=== PATIENT | female | born 1955 | race Caucasian/White ===

== ENCOUNTER 2017-12-20 01:18 | Inpatient (IN) ==
--- NOTE | 2017-12-20 01:52 | ED ---
HPI General Chief complaint: Psychiatric Symptoms Stated complaint: psych eval/fbpd Time Seen by Provider: 12/20/17 01:39 History of Present Illness HPI narrative: 62-year-old female presents under a Felix act initially by the Police Department. The patient reports that tonight she was feeling depressed because it is the anniversary of her 's affair. She reports that she wrote a letter to her children saying goodbye because she is going to take the "coward's way out." She reports that she took 7 tablets of 0.5 mg Xanax at approximately 10 PM tonight. She also took her routine dose of mirtazapine. Her called 911. Symptoms are moderate, aggravated by life stressors with no relieving factors. She denies any drug or alcohol use, auditory or visual hallucinations. She has no medical complaints at this time. Related Data Home Medications Medication Instructions Recorded Confirmed Prevacid 20 mg PO DAILY 12/20/17 12/20/17 alprazolam [Xanax] 0.5 mg PO TID 12/20/17 12/20/17 apwrqrpsyc-aznxeqcggbeiy-inbx 1 cap PO Q4H PRN 12/20/17 12/20/17 [Fioricet] escitalopram oxalate [Lexapro] 20 mg PO DAILY 12/20/17 12/20/17 mirtazapine [Remeron] 30 mg PO HS 12/20/17 12/20/17 sumatriptan succinate [Imitrex] 100 mg PO Q2-4H 12/20/17 12/20/17 Allergies Allergy/AdvReac Type Severity Reaction Status Date / Time doxycycline Allergy Vomiting Verified 12/20/17 01:37 aspirin AdvReac Palpitation Verified 12/20/17 01:37 s Review of Systems ROS: all other systems reviewed are negative PMFSH Medical History Medical History Anxiety (Acute) Depression (Acute) Migraine (Acute) Neutropenia (Acute) Social History Social History Recent Travel in [facility] within the Last 8 Weeks: No Recent Out of Country Travel within the Last 8 Weeks: No Exam Narrative Exam Narrative: GENERAL: Well-developed well-nourished female in no acute distress, awake and alert. SKIN: Warm and dry. HEAD: Atraumatic. Normocephalic. EYES: Pupils equal and round. No scleral icterus. No injection or drainage. ENT: No nasal bleeding or discharge. Mucous membranes pink and moist. NECK: Trachea midline. No JVD. CARDIOVASCULAR: Regular rate and rhythm. No murmur appreciated. RESPIRATORY: No accessory muscle use. Clear to auscultation. Breath sounds equal bilaterally. GASTROINTESTINAL: Abdomen soft, non-tender, nondistended. Hepatic and splenic margins not palpable. MUSCULOSKELETAL: No obvious deformities. No clubbing. No cyanosis. No edema. NEUROLOGICAL: Awake and alert. No obvious cranial nerve deficits. Motor grossly within normal limits. Normal speech. PSYCHIATRIC: Depressed mood; insight and judgment normal. Course Initial Documented Vital Signs Temperature 97.6 F 12/20/17 01:27 Pulse Rate 75 12/20/17 01:27 Respiratory Rate 18 12/20/17 01:27 Blood Pressure 132/81 12/20/17 01:27 Pulse Oximetry 100 12/20/17 01:27 Last Documented Vital Signs Temperature 97.6 F 12/20/17 01:27 Pulse Rate 75 12/20/17 01:27 Respiratory Rate 18 12/20/17 01:27 Blood Pressure 132/81 12/20/17 01:27 Pulse Oximetry 100 12/20/17 01:27 Medical Decision Making MDM Narrative Medical decision making narrative: Mental health screening discussed with the patient. Psychiatric screen ordered. Lab work is been reviewed. Drug screen was positive for barbiturates and benzodiazepines. She was observed in the ER. She is medically cleared for psychiatric disposition. Medical Screen Exam Complete: Yes Emergency Medical Condition: Yes Differential Diagnosis Differential Diagnosis: Major depressive disorder, depressive disorder not otherwise specified, adjustment reaction, acute psychosis, substance-induced mood disorder Lab Data Result diagrams: 12/20/17 01:30 12/20/17 01:30 Lab Results 12/20/17 12/20/17 12/20/17 Range/Units 01:30 01:30 01:30 WBC 2.7 L (4.0-11.0) th/mm3 RBC 4.69 (4.00-5.30) mil/mm3 Hgb 13.8 (11.6-15.3) gm/dL Hct 40.8 (35.0-46.0) % MCV 87.2 (80.0-100.0) fL MCH 29.4 (27.0-34.0) pg MCHC 33.8 (32.0-36.0) % RDW 12.7 (11.6-17.2) % Plt Count 197 (150-450) th/mm3 MPV 8.2 (7.0-11.0) fL Prelim Diff (Auto) Manual diff required Differential Comment . Sodium 142 (136-145) meq/L Potassium 4.2 (3.5-5.1) meq/L Chloride 106 (98-107) meq/L Carbon Dioxide 27.3 (21.0-32.0) meq/L Anion Gap 9 (5-15) meq/L BUN 15 (7-18) mg/dL Creatinine 0.72 (0.50-1.00) mg/dL Estimated GFR 82 L (>89) mL/min Random Glucose 83 (74-106) mg/dL Calcium 8.7 (8.5-10.1) mg/dL Total Bilirubin 0.3 (0.2-1.0) mg/dL AST 16 (15-37) U/L ALT 23 (10-53) U/L Alkaline Phosphatase 53 (45-117) U/L Total Protein 7.4 (6.4-8.2) g/dL Albumin 3.9 (3.4-5.0) g/dL TSH 2.150 (0.358-3.740) uIU/mL Salicylates Less than 1.7 L (2.8-20.0) mg/dL Urine Opiates Screen (Neg) Acetaminophen Less than 2.0 L (10.0-30.0) mcg/mL Ur Barbiturates Screen (Neg) Ur Amphetamines Screen (Neg) U Benzodiazepines Scrn (Neg) Urine Cocaine Screen (Neg) U Cannabinoids Screen (Neg) Serum Alcohol Less than 3 (0-5) mg/dL 12/20/17 Range/Units 01:30 WBC (4.0-11.0) th/mm3 RBC (4.00-5.30) mil/mm3 Hgb (11.6-15.3) gm/dL Hct (35.0-46.0) % MCV (80.0-100.0) fL MCH (27.0-34.0) pg MCHC (32.0-36.0) % RDW (11.6-17.2) % Plt Count (150-450) th/mm3 MPV (7.0-11.0) fL Prelim Diff (Auto) Differential Comment Sodium (136-145) meq/L Potassium (3.5-5.1) meq/L Chloride (98-107) meq/L Carbon Dioxide (21.0-32.0) meq/L Anion Gap (5-15) meq/L BUN (7-18) mg/dL Creatinine (0.50-1.00) mg/dL Estimated GFR (>89) mL/min Random Glucose (74-106) mg/dL Calcium (8.5-10.1) mg/dL Total Bilirubin (0.2-1.0) mg/dL AST (15-37) U/L ALT (10-53) U/L Alkaline Phosphatase (45-117) U/L Total Protein (6.4-8.2) g/dL Albumin (3.4-5.0) g/dL TSH (0.358-3.740) uIU/mL Salicylates (2.8-20.0) mg/dL Urine Opiates Screen Neg (Neg) Acetaminophen (10.0-30.0) mcg/mL Ur Barbiturates Screen Pos H (Neg) Ur Amphetamines Screen Neg (Neg) U Benzodiazepines Scrn Pos H (Neg) Urine Cocaine Screen Neg (Neg) U Cannabinoids Screen Neg (Neg) Serum Alcohol (0-5) mg/dL Discharge Plan Discharge Disposition Patient Disposition: 30 Still Patient Discharge Condition Condition: Stable Discharge Details Diagnosis: Encounter for medical clearance for patient hold Physicians Team ED Provider: Tonio Zhang ED Midlevel Provider: Jerrod Conley Rxs /Orders / Referrals /Forms Prescriptions: No Action sumatriptan succinate [Imitrex] 100 mg Tablet 100 mg PO Q2-4H RF: 0 alprazolam [Xanax] 0.5 mg Tablet 0.5 mg PO TID RF: 0 mirtazapine [Remeron] 30 mg Tablet 30 mg PO HS RF: 0 escitalopram oxalate [Lexapro] 20 mg Tablet 20 mg PO DAILY RF: 0 Prevacid 20 mg PO DAILY RF: 0 [id number]-gfwoyhjzsaxzo-sbyk [Fioricet] 50-300-40 mg Capsule 1 cap PO Q4H PRN (Reason: Migraine Headache) RF: 0 Status ED Status: Medically Cleared
[2017-12-20 01:58] LABS: Hematocrit 40.8 % (35.0-46.0); Hemoglobin 13.8 gm/dL (11.6-15.3); Mean Corpuscular HGB Conc 33.8 % (32.0-36.0); Mean Corpuscular Hemoglobin 29.4 pg (27.0-34.0); Mean Corpuscular Volume 87.2 fL (80.0-100.0); Mean Platelet Volume 8.2 fL (7.0-11.0); Platelet Count 197 th/mm3 (150-450); Red Blood Count 4.69 mil/mm3 (4.00-5.30); Red Cell Distribution Width 12.7 % (11.6-17.2); White Blood Count 2.7 th/mm3 (4.0-11.0)
[2017-12-20 02:25] LABS: Barbiturate Screen,Urine Pos (Neg); Cannabinoid Screen,Urine Neg (Neg); Cocaine Screen,Urine Neg (Neg)
[2017-12-20 02:31] LABS: Amphetamine Screen,Urine Neg (Neg)
[2017-12-20 02:35] LABS: Opiate Screen,Urine Neg (Neg)
[2017-12-20 03:14] LABS: Alanine Aminotransferase 23 U/L (10-53); Albumin 3.9 g/dL (3.4-5.0); Anion Gap 9 meq/L (5-15); Aspartate Aminotransferase 16 U/L (15-37); Blood Urea Nitrogen 15 mg/dL (7-18); Calcium 8.7 mg/dL (8.5-10.1); Carbon Dioxide 27.3 meq/L (21.0-32.0); Chloride 106 meq/L (98-107); Glomerular Filtration Rate 82 mL/min (>89); Glucose,Random 83 mg/dL (74-106); Potassium 4.2 meq/L (3.5-5.1); Sodium 142 meq/L (136-145)
[2017-12-20 03:24] LABS: Alkaline Phosphatase 53 U/L (45-117); Total Protein 7.4 g/dL (6.4-8.2)
[2017-12-20 03:43] LABS: Eosinophils 6 % (0-4); Lymphocytes 68 % (9-44); Monocytes 19 % (0-8)
[2017-12-20 03:49] LABS: Platelet Estimate Normal (Normal); Platelet Morphology Normal (Normal); RBC Morphology Normal (Normal)
--- NOTE | 2017-12-20 10:21 | ED ---
HPI - Psych - General Source: patient, family Limitations: no limitations - History of Present Illness complaint: suicidal ideation, feels depressed Onset (ago): hour(s) Duration: constant History of same: Yes Relieving factors: none Exacerbating factors: other Context: significant life stressor Associated psychiatric symptoms: depression Associated symptoms: denies other symptoms Treatments prior to arrival: other - General Chief Complaint: Psychiatric Symptoms Stated Complaint: psych eval/fbpd Time Seen by Provider: 12/20/17 09:45 - History of Present Illness HPI Narrative: History of Present Illness HPI narrative: 62-year-old, female, 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 The police were contacted by the patient's who reported that she had told him that she planned to kill herself and that she rode a letter to their kids saying [email or web address]. She reported to the registration officer that she suffers from the per depression, that she is suicidal and that she did write a letter. Yesterday was the anniversary of her finding out that her had been having extramarital affair. She also stated she planned to take pills to end her life as she has no will to live. Upon arrival to the ED she reported " she wrote a letter to her children saying alvaroe because she is going to take the cowards way out.She reports that she took 7 tablets of 0.5 mg Xanax at approximately 10 PM tonight. She also took her routine dose of mirtazapine." EMR is reviewed. No previous contact with [facility]. Current toxicology positive for barbiturates and benzos which are prescribed. The patient is seen. She is alert and oriented, engaging and cooperative. Affect is depressed and tearful. Mood is depressed. She admits that she is experiencing marital stressors related to an ongoing affair her has been having. She admits that she wrote the letter as well as admits to having taken some of the extra medication. She tells me she feels remorseful for what she did. She is wanting to be discharged because she has a business trip planned for . She tells me that her daughter will spend the night with her. The patient denies current suicidal or homicidal ideation. I placed a call to her daughter Frank with the patient's verbal consent at [phone]. The daughter does tell me that the patient can spend the night with her overnight yet she has some concerns for her safety. She tells me that she has talked about suicide before and that the daughter has called the police on prior occasions after her statements. She also tells me that the patient spent an hour and a half with her therapist, Ms. Amaya Jacobs earlier in the day and did not disclose her suicidality. I placed a call to Dr. Scott leon office at [phone] and message left to obtain further information. (Minnie Dey) - Related Data Home Medications Medication Instructions Recorded Confirmed Prevacid 20 mg PO DAILY 12/20/17 12/20/17 alprazolam [Xanax] 0.5 mg PO TID 12/20/17 12/20/17 [id number]-wlzbaqtrnzcnm-nfct 1 cap PO Q4H PRN 12/20/17 12/20/17 [Fioricet] escitalopram oxalate [Lexapro] 20 mg PO DAILY 12/20/17 12/20/17 mirtazapine [Remeron] 30 mg PO HS 12/20/17 12/20/17 sumatriptan succinate [Imitrex] 100 mg PO Q2-4H 12/20/17 12/20/17 Allergies Allergy/AdvReac Type Severity Reaction Status Date / Time doxycycline Allergy Vomiting Verified 12/20/17 01:37 aspirin AdvReac Palpitation Verified 12/20/17 01:37 s PMFSH - History History Provided By: Patient - Medical History Medical History: Medical History (Last Updated 12/20/17 @ 01:30 by Candie Enamorado RN) Anxiety Depression Migraine Neutropenia - Social History I have reviewed the patient's Social History: Yes - Tobacco History Second Hand Smoke Exposure: Yes Tobacco Use In Past 30 Days: Yes Smoking Status: Current every day smoker Tobacco Type: Cigarettes - Alcohol History How Often Do You Have a Drink Containing Alcohol: Monthly or less - Travel History Recent Travel in the [place] Within the Last 8 Weeks: No Recent Travel Out of the Country Within the Last 8 Weeks: No - Immunization History Tetanus Immunization: Unsure Psychiatric History - Psychiatric History Psychiatric Treatment History: History of Community Mental Health Treatment History of Inpatient Treatment: No Firearms in Home: No - Psychiatric History Reports no previous psychiatric inpatient hospitalizations. No previous suicide attempts. Has been seen in outpatient psychiatrist for approximately 1 year. Does see a therapist as well since March. (Minnie Dey) - Family Psychiatric History Mother with reported multiple suicide attempts and history of major depression. (Minnie Dey) Mental Status Examination Consciousness: Alert Orientation: x4 Motor Activity: Normal gait Speech: Unremarkable Language: Adequate Fund of Knowledge: Adequate Attention and Concentration: Adequate Memory: Unremarkable Mood: Sad Affect: Sad, Other Thought Process & Associations: Intact, Logical (Tearful), Goal directed Thought Content: Appropriate Hallucination Type: None Delusion Type: None Suicidal Ideation: Yes Suicidal Plan: No Suicidal Intention: No Homicidal Ideation: No Homicidal Plan: No Homicidal Intention: No Insight: Fair Judgment: Impulsive Initial Documented Vital Signs Temperature 97.6 F 12/20/17 01:27 Pulse Rate 75 12/20/17 01:27 Respiratory Rate 18 12/20/17 01:27 Blood Pressure 132/81 12/20/17 01:27 Pulse Oximetry 100 12/20/17 01:27 Last Documented Vital Signs Temperature 97.8 F 12/20/17 11:35 Pulse Rate 78 12/20/17 11:35 Respiratory Rate 18 12/20/17 11:35 Blood Pressure 147/81 H 12/20/17 11:35 Pulse Oximetry 99 12/20/17 11:35 MDM - Psych - Diagnosis (1) Major depressive disorder, recurrent Status: Acute - Lab Data Result diagrams: 12/20/17 01:30 12/20/17 01:30 - [facility] Narrative Medical decision making narrative: At the time of this evaluation the patient presents with symptoms of depression , recent suicide attempt by overdose in contacts of the anniversary of her finding out her was having an extramarital affair. Although the patient denies current suicidal ideation the patient's daughter had some concerns regarding the patient's safety if she were to be discharge. She was mostly concerned that she had spent an hour and a half with her therapist earlier in the day and had not discussed her plans. At this time the patient will be admitted to our inpatient psychiatric unit for further evaluation, for safety, stabilization. (Minnie Dey) - Lab Data Lab Results 12/20/17 12/20/17 12/20/17 Range/Units 01:30 01:30 01:30 WBC 2.7 L (4.0-11.0) th/mm3 RBC 4.69 (4.00-5.30) mil/mm3 Hgb 13.8 (11.6-15.3) gm/dL Hct 40.8 (35.0-46.0) % MCV 87.2 (80.0-100.0) fL MCH 29.4 (27.0-34.0) pg MCHC 33.8 (32.0-36.0) % RDW 12.7 (11.6-17.2) % Plt Count 197 (150-450) th/mm3 MPV 8.2 (7.0-11.0) fL Prelim Diff (Auto) Manual diff required WBC Differential Manual diff final Seg Neuts % (Manual) 7 L (16-70) % Lymphocytes % (Manual) 68 H (9-44) % Monocytes % (Manual) 19 H (0-8) % Eosinophils % (Manual) 6 H (0-4) % Abs Neuts (Manual) 0.2 L* (1.8-7.7) th/mm3 Differential Comment . Platelet Estimate Normal (Normal) Platelet Morphology Normal (Normal) RBC Morphology Normal (Normal) Sodium 142 (136-145) meq/L Potassium 4.2 (3.5-5.1) meq/L Chloride 106 (98-107) meq/L Carbon Dioxide 27.3 (21.0-32.0) meq/L Anion Gap 9 (5-15) meq/L BUN 15 (7-18) mg/dL Creatinine 0.72 (0.50-1.00) mg/dL Estimated GFR 82 L (>89) mL/min Random Glucose 83 (74-106) mg/dL Calcium 8.7 (8.5-10.1) mg/dL Total Bilirubin 0.3 (0.2-1.0) mg/dL AST 16 (15-37) U/L ALT 23 (10-53) U/L Alkaline Phosphatase 53 (45-117) U/L Total Protein 7.4 (6.4-8.2) g/dL Albumin 3.9 (3.4-5.0) g/dL TSH 2.150 (0.358-3.740) uIU/mL Salicylates Less than 1.7 L (2.8-20.0) mg/dL Urine Opiates Screen (Neg) Acetaminophen Less than 2.0 L (10.0-30.0) mcg/mL Ur Barbiturates Screen (Neg) Ur Amphetamines Screen (Neg) U Benzodiazepines Scrn (Neg) Urine Cocaine Screen (Neg) U Cannabinoids Screen (Neg) Serum Alcohol Less than 3 (0-5) mg/dL 12/20/17 Range/Units 01:30 WBC (4.0-11.0) th/mm3 RBC (4.00-5.30) mil/mm3 Hgb (11.6-15.3) gm/dL Hct (35.0-46.0) % MCV (80.0-100.0) fL MCH (27.0-34.0) pg MCHC (32.0-36.0) % RDW (11.6-17.2) % Plt Count (150-450) th/mm3 MPV (7.0-11.0) fL Prelim Diff (Auto) WBC Differential Seg Neuts % (Manual) (16-70) % Lymphocytes % (Manual) (9-44) % Monocytes % (Manual) (0-8) % Eosinophils % (Manual) (0-4) % Abs Neuts (Manual) (1.8-7.7) th/mm3 Differential Comment Platelet Estimate (Normal) Platelet Morphology (Normal) RBC Morphology (Normal) Sodium (136-145) meq/L Potassium (3.5-5.1) meq/L Chloride (98-107) meq/L Carbon Dioxide (21.0-32.0) meq/L Anion Gap (5-15) meq/L BUN (7-18) mg/dL Creatinine (0.50-1.00) mg/dL Estimated GFR (>89) mL/min Random Glucose (74-106) mg/dL Calcium (8.5-10.1) mg/dL Total Bilirubin (0.2-1.0) mg/dL AST (15-37) U/L ALT (10-53) U/L Alkaline Phosphatase (45-117) U/L Total Protein (6.4-8.2) g/dL Albumin (3.4-5.0) g/dL TSH (0.358-3.740) uIU/mL Salicylates (2.8-20.0) mg/dL Urine Opiates Screen Neg (Neg) Acetaminophen (10.0-30.0) mcg/mL Ur Barbiturates Screen Pos H (Neg) Ur Amphetamines Screen Neg (Neg) U Benzodiazepines Scrn Pos H (Neg) Urine Cocaine Screen Neg (Neg) U Cannabinoids Screen Neg (Neg) Serum Alcohol (0-5) mg/dL
[2017-12-20] MEDS ORDERED: Aluminum/Magnesium/Simethacone Susp 30 ML UDC PO PRN (11:35)
[2017-12-20] MEDS ORDERED: Bisacodyl 10 MG Supp RECTAL PRN (11:35)
[2017-12-21 05:49] VITALS: RESP 16
[2017-12-21 08:10] LABS: Anion Gap 9 meq/L (5-15); Blood Urea Nitrogen 12 mg/dL (7-18); Calcium 9.2 mg/dL (8.5-10.1); Carbon Dioxide 27.4 meq/L (21.0-32.0); Chloride 105 meq/L (98-107); Glomerular Filtration Rate Greater Than 89 mL/min (>89); Glucose,Random 78 mg/dL (74-106); Potassium 3.9 meq/L (3.5-5.1); Sodium 141 meq/L (136-145)
[2017-12-21 08:11] LABS: Cholesterol 226 mg/dL (120-200); Triglycerides 126 mg/dL (42-150)
[2017-12-21 08:36] LABS: Chol/HDL Ratio 2.55 Ratio; HDL Cholesterol 88.3 mg/dL (40.0-60.0); LDL Cholesterol,Calculated 113 mg/dL (0-99); Vitamin B12 365 pg/mL (193-986)
[2017-12-21] MEDS: LANSOPRAZOLE 20 MG PO SCH (09:13)
[2017-12-21] MEDS: ALPRAZolam 0.5 MG Tablet PO SCH ×2 (09:13→13:52)
--- NOTE | 2017-12-21 13:37 | ECG ---
Date Performed: 12/21/2017 Time Performed: 10:53:25 PTAGE: 62 years EKG: Sinus rhythm NORMAL ECG Since the previous tracing, no significant change noted NO PREVIOUS TRACING DOCTOR: Henry Vargas M.D. Interpretating Date/Time 12/21/2017 13:37:15
[2017-12-21] MEDS: LORazepam 0.5 MG Tablet PO PRN (16:00)
--- NOTE | 2017-12-21 16:01 | P.CON ---
History of Present Illness Service: [facility] Consult date: 12/21/17 Requesting Physician: Garrett Ohara Reason for Consult: Idiopathic neutropenia Primary Care Provider: UNKNOWN Chief Complaint: depression History of Present Illness: Mrs. Up is a pleasant 62-year-old female with history of depression, anxiety , idiopathic neutropenia. Patient was brought in under [id number] act on 12/20/2017 for suicide attempt. Patient reports she has been depressed as her has been having an affair for the last 3 years and she found out only a year ago. They have been for 35 years. In addition, her mother a year ago. Apparently she wrote a letter to her children saying goodbye and took 7 tablets of 0.5 mg Xanax. She also took her routine mirtazapine. Her called 911 and she was brought in. She denies any prior suicide attempt , has been seeing a psychiatrist for the last year because of depression. She has been taking Lexapro and Remeron as well as alprazolam. During evaluation in the emergency room, laboratory workup was completed. CBC was remarkable for leukopenia, WBC of 2.7. Patient endorses history of idiopathic neutropenia that was found incidentally when she had her hysterectomy a few years ago. She follows up with nutrition partner Dr. Forbes as OP and has had previous bone biopsy with no significant findings. Has not had any treatment for condition. Indicates she does not typically get any infections,and usually receives prophylactic antibiotics before any surgical procedures. She is up-to-date with her vaccines including influenza. Denies any recent fevers, no chills, no shortness of breath, no cough, no sputum. No urinary symptoms. No abdominal pain, no nausea, no vomiting, no diarrhea. Hospitalist services are requested to assist with medical management. Patient has been moved to a private room. She is very conscientious about her condition and is strict about handwashing and avoiding situations that put her at risk of infection. Review of Systems All other systems reviewed negative except as stated in HPI PMFSH - History History Provided By: Patient - Medical History Medical History: Medical History (Last Reviewed 12/21/17 @ 16:47 by MARIELA Hebert) Anxiety Depression Hx of hysterectomy Migraine Neutropenia - Surgical History Surgical History: Surgical History (Last Updated 12/21/17 @ 16:47 by MARIELA Hebert) History of bone marrow biopsy Hx of appendectomy Hx of breast augmentation - Family History Family History: Family History (Last Updated 12/21/17 @ 16:48 by MARIELA Hebert) Mother Coronary artery disease - Social History I have reviewed the patient's Social History: Yes - Tobacco History Second Hand Smoke Exposure: Yes Tobacco Use In Past 30 Days: Yes Smoking Status: Current every day smoker Tobacco Type: Cigarettes - Alcohol History How Often Do You Have a Drink Containing Alcohol: Monthly or less - Substance Use History Substance History: No History of Abuse - Substance Use Type Alcohol Status: Active Route Used: By Mouth Frequency: 1 glass daily Reason for Use: Calm Down Comment: Patient reports she has a drink each evening while she sits on her patio. - Travel History Recent Travel in the [place] Within the Last 8 Weeks: No Recent Travel Out of the Country Within the Last 8 Weeks: No - Immunization History Tetanus Immunization: Unsure Medications and Allergies Active Medications: Active Medications Acetaminophen/Butalbital/Caffeine (Fioricet 50-325-40) 1 tab PO Q4H PRN PRN Reason: Migraine Headache Al Hydrox/Mg Hydrox/Simethicone (Mag-Al Plus Susp Liq) 30 ml PO Q6H PRN PRN Reason: DYSPEPSIA Al Hydroxide/Mg Hydroxide (Milk Of Magnesia Liq) 30 ml PO Q12H PRN PRN Reason: Mild Constipation Bisacodyl (Dulcolax Supp) 10 mg RECTAL DAILY PRN PRN Reason: SEVERE CONSITIPATION Escitalopram Oxalate (Lexapro) 20 mg PO DAILY [facility] Last Admin: 12/21/17 15:32 Dose: 20 mg Lactulose (Lactulose Liq) 30 ml PO DAILY PRN PRN Reason: SEVERE CONSITIPATION Lorazepam (Ativan) 0.5 mg PO Q12H PRN PRN Reason: ANXIETY Last Admin: 12/21/17 16:00 Dose: 0.5 mg Mirtazapine (Remeron) 45 mg PO HS [facility] Non-Formulary Medication (Prevacid) 20 mg PO DAILY [facility] Last Admin: 12/21/17 09:13 Dose: Not Given Sennosides (Senokot) 17.2 mg PO Q12H PRN PRN Reason: Moderate Constipation Allergies Allergy/AdvReac Type Severity Reaction Status Date / Time doxycycline Allergy Vomiting Verified 12/20/17 01:37 aspirin AdvReac Palpitation Verified 12/20/17 01:37 s Home Medications Medication Instructions Recorded Confirmed Type Prevacid 20 mg PO DAILY 12/20/17 12/20/17 History alprazolam [Xanax] 0.5 mg PO TID 12/20/17 12/20/17 History mztiiqjohi-pptsuibcqltkc-gxlb 1 cap PO Q4H PRN 12/20/17 12/20/17 History [Fioricet] escitalopram oxalate [Lexapro] 20 mg PO DAILY 12/20/17 12/20/17 History mirtazapine [Remeron] 30 mg PO HS 12/20/17 12/20/17 History sumatriptan succinate [Imitrex] 100 mg PO Q2-4H 12/20/17 12/20/17 History Physical Exam Vital signs: Vital Signs 12/21/17 05:47 Temperature 98 F Pulse Rate 82 Respiratory Rate 16 Blood Pressure 116/75 Pulse Oximetry 99 Intake & Output 12/20/17 12/21/17 12/21/17 18:59 06:59 18:59 Weight 60 kg Other: Weight On Admission 60 kg Narrative: GENERAL: Well-nourished, well-developed patient in no apparent distress. SKIN: Warm and dry. HEAD: Atraumatic. Normocephalic. EYES: Pupils equal and round. No scleral icterus. No injection or drainage. ENT: No nasal bleeding or discharge. Mucous membranes pink and moist. NECK: Trachea midline. No JVD. CARDIOVASCULAR: Regular rate and rhythm. RESPIRATORY: No accessory muscle use. Clear to auscultation. Breath sounds equal bilaterally. GASTROINTESTINAL: Abdomen soft, non-tender, nondistended. Hepatic and splenic margins not palpable. MUSCULOSKELETAL: Extremities without clubbing, cyanosis, or edema. No obvious deformities. NEUROLOGICAL: Awake and alert and oriented x 3. No obvious cranial nerve deficits. Motor grossly within normal limits. Five out of 5 muscle strength in the arms and legs. Normal speech. PSYCHIATRIC: Appropriate mood and affect; insight and judgment normal. Assessment and Plan - Assessment (1) Major depressive disorder, recurrent Code(s): F33.9 - Major depressive disorder, recurrent, unspecified Status: Acute (2) Chronic idiopathic neutropenia Code(s): D70.9 - Neutropenia, unspecified Status: Chronic - Plan 62-year-old female who is generally healthy, history of idiopathic neutropenia, depression, anxiety. Brought in under Felix act for suicide attempt, took 7 tablets of alprazolam 0.5 mg in addition to mirtazapine. [facility] consultation for idiopathic neutropenia. Patient denies any fever, no chills. No recent infections. Up-to-date on vaccines. Depression, anxiety. Suicide attempt Continue with psychiatric management, patient has been restarted on mirtazapine and Lexapro Idiopathic neutropenia WBC 2.7>>2.4 No fever, no chills. 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 -Follow-up as outpatient with nutrition partner Plan of care was discussed with patient and RN. Thank you for this consultation , we will see patient. Code Status: Full code Discussed Condition With: RN, pt. Discharge Planning: Per psych team
[2017-12-21 17:22] LABS: Hemoglobin A1c 5.4 % (4.3-6.0)
[2017-12-21 17:43] LABS: Baso # (Auto) 0.1 th/mm3 (0.0-0.2); Baso % (Auto) 2.2 % (0.0-2.0); Eos % (Auto) 0.9 % (0.0-4.0); Hemoglobin 13.8 gm/dL (11.6-15.3); Lymph # (Auto) 1.1 th/mm3 (1.0-4.8); Lymph % (Auto) 45.6 % (9.0-44.0); Mean Corpuscular HGB Conc 34.6 % (32.0-36.0); Mean Corpuscular Hemoglobin 29.7 pg (27.0-34.0); Mean Corpuscular Volume 85.9 fL (80.0-100.0); Mean Platelet Volume 8.7 fL (7.0-11.0); Mono # (Auto) 0.6 th/mm3 (0.0-0.9); Mono % (Auto) 25.8 % (0.0-8.0); Neut # (Auto) 0.6 th/mm3 (1.8-7.7); Neut % (Auto) 25.5 % (16.0-70.0); Platelet Count 208 th/mm3 (150-450); Red Blood Count 4.65 mil/mm3 (4.00-5.30); Red Cell Distribution Width 12.7 % (11.6-17.2); White Blood Count 2.4 th/mm3 (4.0-11.0)
[2017-12-21 18:11] LABS: Lymphocytes 40 % (9-44); Monocytes 18 % (0-8)
[2017-12-21 18:12] LABS: Platelet Estimate Normal (Normal); Platelet Morphology Normal (Normal); RBC Morphology Normal (Normal)
[2017-12-21] MEDS: Mirtazapine 15 MG Tablet PO SCH (21:35)
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
[2017-12-22] MEDS: Butalbital/APAP/Caff 50/325/40 MG Tablet PO PRN (04:57)
[2017-12-22] MEDS: LORazepam 0.5 MG Tablet PO PRN (08:28)
[2017-12-22] MEDS: LANSOPRAZOLE 20 MG PO SCH (09:34)
[2017-12-22] MEDS: Pantoprazole Sodium 20 MG DR Tablet PO SCH (11:34)
--- NOTE | 2017-12-22 14:38 | P.PN ---
Subjective Interval history: Follow up for idiopathic neutropenia: Patient seen and examined, participating in group therapy. Patient smiling, indicates that she slept much better last night. Occasional periods of anxiety which was controlled with Ativan. No fevers. No chest pain, shortness of breath, no nausea, no vomiting, no diarrhea. Eating fairly well. Physical Exam Vital signs: Vital Signs 12/21/17 18:00 12/22/17 05:58 Temperature 98.1 F 98 F Pulse Rate 84 94 H Respiratory Rate 16 16 Blood Pressure 109/59 L 147/54 H Pulse Oximetry 99 97 Intake & Output 12/21/17 12/22/17 12/22/17 18:59 06:59 18:59 Weight 60.1 kg Narrative: GENERAL: Well-nourished, well-developed patient in no apparent distress. SKIN: Warm and dry. HEAD: Atraumatic. Normocephalic. EYES: Pupils equal and round. No scleral icterus. No injection or drainage. NEUROLOGICAL: Awake and alert and oriented x 3. Speech clear. PSYCHIATRIC: Smiling, participating in group therapy. Results - Labs CBC & Chem 7: 12/21/17 17:20 12/21/17 06:19 Laboratory Results - last 24 hr 12/21/17 12/21/17 06:19 17:20 WBC 2.4 L RBC 4.65 Hgb 13.8 Hct 40.0 MCV 85.9 MCH 29.7 MCHC 34.6 RDW 12.7 Plt Count 208 MPV 8.7 Prelim Diff (Auto) Slide review pending Neut % (Auto) 25.5 Lymph % (Auto) 45.6 H [place] % (Auto) 25.8 H Eos % (Auto) 0.9 Baso % (Auto) 2.2 H Neut # (Auto) 0.6 L Lymph # (Auto) 1.1 [place] # (Auto) 0.6 Eos # (Auto) 0.0 Baso # (Auto) 0.1 WBC Differential Manual diff final Seg Neuts % (Manual) 39 Band Neuts % (Manual) 3 Lymphocytes % (Manual) 40 Monocytes % (Manual) 18 H Abs Neuts (Manual) 1.0 L Differential Comment . Platelet Estimate Normal Platelet Morphology Normal RBC Morphology Normal Hemoglobin A1c 5.4 Assessment and Plan - Assessment (1) Major depressive disorder, recurrent Code(s): F33.9 - Major depressive disorder, recurrent, unspecified Status: Acute (2) Chronic idiopathic neutropenia Code(s): D70.9 - Neutropenia, unspecified Status: Chronic - Plan 62-year-old female who is generally healthy, history of idiopathic neutropenia, depression, anxiety. Brought in under [employer] act for suicide attempt, took 7 tablets of alprazolam 0.5 mg in addition to mirtazapine. [facility] consultation for idiopathic neutropenia. Patient denies any fever, no chills. No recent infections. Up-to-date on vaccines. Depression, anxiety. Suicide attempt Continue with psychiatric management, patient has been restarted on mirtazapine and Lexapro Idiopathic neutropenia WBC 2.7>>2.4 No fever, no chills. 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 -Follow-up as outpatient with manager transportation planning Pt. can f/u with Dr. Forbes as OP Will sign off for now, reconsult if needed. Code Status: Full code Discussed Condition With: RN, pt Discharge Planning: Per psych team --poss tomorrow.
[2017-12-22 18:07] VITALS: O2SAT 99
--- NOTE | 2017-12-22 19:39 | P.PNPSY ---
Subjective Remarks: Patient seen for follow-up, chart reviewed. Discussion with nursing staff reported that patient no behavioral disturbances, states that she is embarrassed at what she did. Patient was found ambulating on the unit noted B, cooperative. Patient states that she slept well last evening but had a migraine this morning which she took her Fioricet which helped alleviated. She states that she plans on staying with her daughter upon discharge that her daughter has scheduled an outpatient appointment with her outpatient psychiatrist for tomorrow at 11 AM. She states her mood has been "good this morning" denying feeling depressed at this time reporting her appetite being adequate and denying any suicidal ideations at this time. Review of Systems All other systems reviewed negative except as stated in HPI Mental Status Examination Appearance: Appropriate Consciousness: Alert Orientation: x4 Motor Activity: Normal gait Speech: Unremarkable Language: Adequate Fund of Knowledge: Adequate Attention and Concentration: Adequate Memory: Unremarkable Mood: Good Affect: Sad (lessening) Thought Process & Associations: Intact, Logical (Tearful), Goal directed Thought Content: Appropriate Hallucination Type: None Delusion Type: None Suicidal Ideation: No Suicidal Plan: No Suicidal Intention: No Homicidal Ideation: No Homicidal Plan: No Homicidal Intention: No Insight: Fair Judgment: Impulsive Assessment and Plan - Assessment (1) Major depressive disorder, recurrent Code(s): F33.9 - Major depressive disorder, recurrent, unspecified Status: Acute - Plan Plan: Patient this time noted with appropriate affect not tearful today during interview stating that she has plans on staying with her daughter upon discharge and attending outpatient psychiatric follow-up appointment tomorrow morning if discharged. Continue current treatment. Continue to monitor mood and behavior. Discharge planning in progress. Justification for Continued Inpatient Stay: At risk of further decompensation at lower level care.
[2017-12-22] MEDS: Mirtazapine 15 MG Tablet PO SCH (21:48)
[2017-12-23] MEDS: Butalbital/APAP/Caff 50/325/40 MG Tablet PO PRN (03:09)
[2017-12-23 05:00] VITALS: BP 123/58; PULSE 88; TEMP 97.9
[2017-12-23] MEDS: LORazepam 0.5 MG Tablet PO PRN (09:39)
[2017-12-23] MEDS: Pantoprazole Sodium 20 MG DR Tablet PO SCH (09:39)
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
== END 2017-12-23 10:25 | disposition home or self-care (01) ==
LOC: NEPD 01:18 → NEDA 11:50 → H260 12:10
PROVIDERS: ADMIT Student in an Organized Health Care Education/Training Program; ATTEND Student in an Organized Health Care Education/Training Program